=== PATIENT | female | born 1940 | race Caucasian/White ===

== ENCOUNTER 2017-09-22 14:42 | Observation (INO) ==
--- NOTE | 2017-09-22 14:54 | Emergency Department Note ---
Disposition Clinical Impression: Diarrhea, UTI (urinary tract infection) Disposition: Home, Self-Care Condition: Fair Instructions: Urinary Tract Infection in Women (ED) Reasons to Return/Additional Instructions: 1. Please take medication as prescribed. 2. Please follow-up with PCP within the next 24 hours for a re-check. 3. Please return to the ED if patient begins to experience worsening diarrhea, experiencing signs of dehydration including dry mouth, fast heart rate, weaaknes , or fevers. Referrals: Lillian Bruce LEARNING COORDINATOR [Primary Care Provider] - Forms: ED Satisfaction Letter, Work/School Release General Adult HPI - General Chief complaint: ED Abdominal Pain Stated complaint: diarrhea, epigastric pain Time Seen by Provider: 09/22/17 14:48 Source: patient Limitations: no limitations - History of Present Illness Pain Scale: 10 - Related Data Home Medications Medication Instructions Recorded Confirmed Albuterol Sulfate [Proair Hfa] 2 puff IH Q4HR PRN 09/22/17 09/22/17 Donepezil HCl [Aricept] 5 mg PO DAILY 09/22/17 09/22/17 Loratadine [Claritin] 10 mg PO DAILY 09/22/17 09/22/17 Memantine [Namenda] 5 mg PO BID 09/22/17 09/22/17 Montelukast [Singulair] 10 mg PO DAILY 09/22/17 09/22/17 Multivitamin [One Daily Essential] 1 tab PO DAILY 09/22/17 09/22/17 Naproxen Sodium [Aleve] 220 mg PO HS 09/22/17 09/22/17 Omeprazole [PriLOSEC] 20 mg PO DAILY 09/22/17 09/22/17 Tiotropium [Spiriva] 18 mcg IH DAILY 09/22/17 09/22/17 Allergies Allergy/AdvReac Type Severity Reaction Status Date / Time No Known Allergies Allergy Verified 09/22/17 18:39 Past Medical History - Past Medical History Medical history: Reports: dementia, GERD Surgical history: Reports: non-contributory, hysterectomy Psychiatric history: Reports: no psych history COMPLIANCE NURSE history: Reports: bilateral tubal ligation - Social History Smoking Status: Former smoker Smokeless Tobacco Status: No Alcohol use: Reports: none Drug use: Reports: none Physical Exam - General Limitations: no limitations General appearance: alert, in no apparent distress Course Vital Signs Temperature 98.1 F 07/05/18 14:44 Pulse Rate 74 09/22/17 14:44 Respiratory Rate 18 09/22/17 14:44 Blood Pressure 155/73 09/22/17 14:44 O2 Sat by Pulse Oximetry 94 09/22/17 14:44 Temperature 98.1 F 09/22/17 14:44 Pulse Rate 65 09/22/17 15:39 Respiratory Rate 16 09/22/17 15:39 Blood Pressure 123/57 09/22/17 15:39 O2 Sat by Pulse Oximetry 94 09/22/17 14:44 Oxygen Delivery Oxygen Delivery Room Air Medical Decision Making - Lab Data Result diagrams: 09/22/17 17:07 09/22/17 15:40 Lab Results 09/22/17 09/22/17 09/22/17 Range/Units 15:40 16:39 16:48 WBC (4.3-11.1) K/mcL RBC (3.82-4.97) M/mcL Hgb (11.5-15.4) g/dL Hct (35.3-44.9) % MCV (83.0-100.0) fL MCH (28.0-33.3) pg MCHC (31.6-35.5) g/dL RDW (11.5-14.5) % Plt Count (140-400) K/mcL MPV (9.4-12.4) fL Immature Gran % (0-4) % Seg Neutrophils % % Lymphocytes % % Monocytes % % Eosinophils % % Basophils % % Neutrophils # (1.6-8.9) K/mcL Lymphocytes # (0.6-4.6) K/mcL Monocytes # (0.0-1.3) K/mcL Eosinophils # (0.0-0.6) K/mcL Basophils # (0.0-0.2) K/mcL Sodium 138 (136-145) mEq/L Potassium 3.7 (3.5-5.1) mEq/L Chloride 106 (98-107) mEq/L Carbon Dioxide 23 (23-29) mEq/L BUN 15 (8-23) mg/dL Creatinine 0.83 (0.60-1.20) mg/dL Est GFR ( Amer) > 60 (> 60) Est GFR (Non-Af Amer) > 60 (> 60) BUN/Creatinine Ratio 18 (6-26) Glucose 85 (70-105) mg/dL Calculated Osmolality 286 (280-300) Calcium 9.3 (8.6-10.3) mg/dL Total Bilirubin 0.6 (0.3-1.0) mg/dL AST 14 (13-39) Units/L ALT 9 (7-52) Units/L Alkaline Phosphatase 41 (34-104) Units/L Serum Total Protein 5.8 L (6.4-8.9) g/dL Albumin 3.9 (3.5-5.7) g/dL Globulin 1.9 L (2.4-3.5) g/dL Albumin/Globulin Ratio 2.1 (1.1-2.2) Urine Color Yellow (Yellow) Urine Clarity Clear (Clear) Urine pH 6.0 (5.0-8.0) pH Units Ur Specific [place] 1.012 (1.010-1.025) Urine Protein Negative (Neg-Trace) mg/dL Urine Glucose (UA) Normal (Normal) mg/dL Urine Ketones Negative (Negative) mg/dL Urine Blood Negative (Negative) Urine Nitrite Positive A (Negative) Urine Bilirubin Negative (Negative) Urine Urobilinogen Normal (Normal) mg/dL Ur Leukocyte Esterase Small H (Negative) Urine Microscopic RBC 0-3 (0-3) per hpf Urine Microscopic WBC 3-5 H (0-3) per hpf Ur Squamous Epith Cells None Seen (None-Few) per lpf Urine Bacteria Many H (None-Few) per hpf Hyaline Casts None Seen (None-Few) per lpf Ur Culture Indicated? YES A (NO) Specimen Rejected Clotted 09/22/17 Range/Units 17:07 WBC 7.7 (4.3-11.1) K/mcL RBC 3.75 L (3.82-4.97) M/mcL Hgb 12.2 (11.5-15.4) g/dL Hct 34.8 L (35.3-44.9) % MCV 92.8 (83.0-100.0) fL MCH 32.5 (28.0-33.3) pg MCHC 35.1 (31.6-35.5) g/dL RDW 12.5 (11.5-14.5) % Plt Count 179 (140-400) K/mcL MPV 9.1 L (9.4-12.4) fL Immature Gran % 0.5 (0-4) % Seg Neutrophils % 80.0 % Lymphocytes % 12.7 % Monocytes % 4.2 % Eosinophils % 2.5 % Basophils % 0.1 % Neutrophils # 6.2 (1.6-8.9) K/mcL Lymphocytes # 1.0 (0.6-4.6) K/mcL Monocytes # 0.3 (0.0-1.3) K/mcL Eosinophils # 0.2 (0.0-0.6) K/mcL Basophils # 0.0 (0.0-0.2) K/mcL Sodium (136-145) mEq/L Potassium (3.5-5.1) mEq/L Chloride (98-107) mEq/L Carbon Dioxide (23-29) mEq/L BUN (8-23) mg/dL Creatinine (0.60-1.20) mg/dL Est GFR ( Amer) (> 60) Est GFR (Non-Af Amer) (> 60) BUN/Creatinine Ratio (6-26) Glucose (70-105) mg/dL Calculated Osmolality (280-300) Calcium (8.6-10.3) mg/dL Total Bilirubin (0.3-1.0) mg/dL AST (13-39) Units/L ALT (7-52) Units/L Alkaline Phosphatase (34-104) Units/L Serum Total Protein (6.4-8.9) g/dL Albumin (3.5-5.7) g/dL Globulin (2.4-3.5) g/dL Albumin/Globulin Ratio (1.1-2.2) Urine Color (Yellow) Urine Clarity (Clear) Urine pH (5.0-8.0) pH Units Ur Specific [place] (1.010-1.025) Urine Protein (Neg-Trace) mg/dL Urine Glucose (UA) (Normal) mg/dL Urine Ketones (Negative) mg/dL Urine Blood (Negative) Urine Nitrite (Negative) Urine Bilirubin (Negative) Urine Urobilinogen (Normal) mg/dL Ur Leukocyte Esterase (Negative) Urine Microscopic RBC (0-3) per hpf Urine Microscopic WBC (0-3) per hpf Ur Squamous Epith Cells (None-Few) per lpf Urine Bacteria (None-Few) per hpf Hyaline Casts (None-Few) per lpf Ur Culture Indicated? (NO) Specimen Rejected Attestation Statement - Attestation Attestation: I examined this patient and my medical decision-making was reviewed with the Resident Physician. I agree with the documented findings, disposition and treatment plan as described except to the extent set forth below. [id number] time provided Patient complains of upper abdominal pain and diarrhea. She appears in no acute distress. Triage note and vitals reviewed by me
[2017-09-22] MEDS ORDERED: Ondansetron 4 MG/2 ML VIAL IVP ONE (14:55)
[2017-09-22] MEDS ORDERED: 0.9 % Sodium Chloride 1,000 ML IVC ONE (15:04)
--- NOTE | 2017-09-22 15:07 | Emergency Department Note ---
Disposition Clinical Impression: Diarrhea Qualifiers: Diarrhea type: unspecified type Qualified Code(s): R19.7 - Diarrhea, unspecified UTI (urinary tract infection) Qualifiers: Urinary tract infection type: acute cystitis Hematuria presence: without hematuria Qualified Code(s): N30.00 - Acute cystitis without hematuria Disposition: Home, Self-Care Condition: Fair Instructions: Urinary Tract Infection in Women (ED) Reasons to Return/Additional Instructions: 1. Please take medication as prescribed. 2. Please follow-up with PCP within the next 24 hours for a re-check. 3. Please return to the ED if patient begins to experience worsening diarrhea, experiencing signs of dehydration including dry mouth, fast heart rate, weaaknes , or fevers. Prescriptions: cephALEXin [Keflex] 500 mg PO TID #30 capsule Referrals: Lillian Bruce, SENIOR INFORMATICA ETL DEVELOPER [Primary Care Provider] - Forms: ED Satisfaction Letter, Work/School Release Time of Disposition: 17:42 Abdominal Pain HPI - General Chief Complaint: ED Abdominal Pain Stated Complaint: diarrhea, epigastric pain Time Seen by Provider: 09/22/17 14:48 Source: patient Mode of arrival: ambulatory Limitations: no limitations Nursing Notes Reviewed: Yes Vital Signs Reviewed: Yes - History of Present Illness HPI Narrative: 77 year old female arrives to the ED complaining of diarrhea x12 hours. She alma up at 0400 this AM with watery diarrhea. No recent antibiotics, illness, hospitalizations, changes in food, sick exposure. The patient admits to epigastric pain as well. Denies vomiting but admits to nausea and vomiting. Hx of HTN. No other complaints including melena or hematochezia. Pain Scale: 10 - Related Data Home Medications Medication Instructions Recorded Confirmed Albuterol Sulfate [Proair Hfa] 2 puff IH Q4H PRN 02/02/16 02/04/17 Cyanocobalamin (Vitamin B-12) 1,000 mcg SL DAILY 02/02/16 02/04/17 [Vitamin B-12] Oxygen 3 l NS HS 02/02/16 02/04/17 Pyridoxine HCl [Vitamin B-6] 250 mg PO DAILY 02/02/16 02/04/17 Tiotropium [Spiriva] 1 puff IH DAILY 02/02/16 02/04/17 Donepezil HCl [Aricept] 5 mg PO 02/17/17 Memantine [Namenda] 5 mg PO 02/17/17 Omeprazole [PriLOSEC] 20 mg PO DAILY 02/17/17 02/17/17 Fioricet 06/15/17 Singulair 06/15/17 Spiriva 06/15/17 Montelukast 07/10/17 Pyridium 08/15/17 Previous Rx's Medication Instructions Recorded Nitrofurantoin (BID) [Macrobid] 100 mg PO BID 7 Days #14 capsule 08/15/17 cephALEXin [Keflex] 500 mg PO TID #30 capsule 09/22/17 Allergies Allergy/AdvReac Type Severity Reaction Status Date / Time No Known Allergies Allergy Verified 08/15/17 11:59 All systems ED: reviewed and negative except as stated. Constitutional: Denies: fever, chills, weakness ENT ED: Denies: congestion Cardiovascular: Denies: chest pain Respiratory: Denies: dyspnea Gastrointestinal: Reports: abdominal pain, diarrhea. 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 Psychiatric history: Reports: no psych history - Social History Smoking status: Former smoker Alcohol use: Reports: none Drug use: Reports: none Physical Exam - General Limitations: no limitations General appearance: alert, in no apparent distress - Head Head exam: atraumatic, normocephalic, normal inspection - Eye Eye exam: Present: normal appearance, PERRL, EOMI - ENT ENT exam: normal exam, normal oropharynx, mucous membranes moist - Neck Neck exam: Present: normal inspection, full ROM, trachea midline - Chest Chest inspection: Present: normal inspection, symmetric chest wall rise - Respiratory Respiratory exam: Present: normal lung sounds bilaterally - Cardiovascular Cardiovascular exam: Present: regular rate, normal rhythm, normal heart sounds - Abdominal Exam Abdominal exam: Present: soft, tenderness (Epigastric), scar. Absent: distention, guarding, rebound, rigidity, Rojas's sign, Rovsing's sign, tenderness at McBurney's Point, pulsatile mass, hernia - Extremities Exam Extremities exam: Present: normal inspection, full ROM. Absent: tenderness, pedal edema - Neurological Exam Neurological exam: Present: alert, oriented X3 - Skin Skin exam: Present: warm, dry, intact, normal color Course Vital Signs Temperature 98.1 F 09/22/17 14:44 Pulse Rate 74 09/22/17 14:44 Respiratory Rate 18 09/22/17 14:44 Blood Pressure 155/73 09/22/17 14:44 O2 Sat by Pulse Oximetry 94 09/22/17 14:44 Temperature 98.1 F 09/22/17 14:44 Pulse Rate 65 09/22/17 15:39 Respiratory Rate 16 09/22/17 15:39 Blood Pressure 123/57 09/22/17 15:39 O2 Sat by Pulse Oximetry 94 09/22/17 14:44 Oxygen Delivery Oxygen Delivery Room Air Abdominal Pain - MDM Narrative Medical decision making narrative: Patient's workup in the emergency department demonstrates findings consistent with a urinary tract infection. The patient has a nitrite positive on lab work. Patient has an extensive history of Escherichia coli on urinalysis. The patient will was given Rocephin here in the emergency Department we will with Keflex home. The patient was noted to have several sporran susceptible Escherichia coli. The patient is resting comfortably at this time and given a liter fluid. Labs are unremarkable otherwise. CT scan demonstrates no acute process. The patient will be discharged home and follow-up with PCP within the next 24 hours for recheck. Patient and patient's family feel comfortable with being discharged. No further questions or concerns noted at this time. - Medical Records Medical records reviewed: Yes I reviewed the patient's medical records. - Lab Data Lab results reviewed: Yes I reviewed the patient's lab results. Result diagrams: 09/22/17 17:07 09/22/17 15:40 Lab Results 09/22/17 09/22/17 09/22/17 Range/Units 15:40 16:39 16:48 WBC (4.3-11.1) K/mcL RBC (3.82-4.97) M/mcL Hgb (11.5-15.4) g/dL Hct (35.3-44.9) % MCV (83.0-100.0) fL MCH (28.0-33.3) pg MCHC (31.6-35.5) g/dL RDW (11.5-14.5) % Plt Count (140-400) K/mcL MPV (9.4-12.4) fL Immature Gran % (0-4) % Seg Neutrophils % % Lymphocytes % % Monocytes % % Eosinophils % % Basophils % % Neutrophils # (1.6-8.9) K/mcL Lymphocytes # (0.6-4.6) K/mcL Monocytes # (0.0-1.3) K/mcL Eosinophils # (0.0-0.6) K/mcL Basophils # (0.0-0.2) K/mcL Sodium 138 (136-145) mEq/L Potassium 3.7 (3.5-5.1) mEq/L Chloride 106 (98-107) mEq/L Carbon Dioxide 23 (23-29) mEq/L BUN 15 (8-23) mg/dL Creatinine 0.83 (0.60-1.20) mg/dL Est GFR ( Amer) > 60 (> 60) Est GFR (Non-Af Amer) > 60 (> 60) BUN/Creatinine Ratio 18 (6-26) Glucose 85 (70-105) mg/dL Calculated Osmolality 286 (280-300) Calcium 9.3 (8.6-10.3) mg/dL Total Bilirubin 0.6 (0.3-1.0) mg/dL AST 14 (13-39) Units/L ALT 9 (7-52) Units/L Alkaline Phosphatase 41 (34-104) Units/L Serum Total Protein 5.8 L (6.4-8.9) g/dL Albumin 3.9 (3.5-5.7) g/dL Globulin 1.9 L (2.4-3.5) g/dL Albumin/Globulin Ratio 2.1 (1.1-2.2) Urine Color Yellow (Yellow) Urine Clarity Clear (Clear) Urine pH 6.0 (5.0-8.0) pH Units Ur Specific [place] 1.012 (1.010-1.025) Urine Protein Negative (Neg-Trace) mg/dL Urine Glucose (UA) Normal (Normal) mg/dL Urine Ketones Negative (Negative) mg/dL Urine Blood Negative (Negative) Urine Nitrite Positive A (Negative) Urine Bilirubin Negative (Negative) Urine Urobilinogen Normal (Normal) mg/dL Ur Leukocyte Esterase Small H (Negative) Urine Microscopic RBC 0-3 (0-3) per hpf Urine Microscopic WBC 3-5 H (0-3) per hpf Ur Squamous Epith Cells None Seen (None-Few) per lpf Urine Bacteria Many H (None-Few) per hpf Hyaline Casts None Seen (None-Few) per lpf Ur Culture Indicated? YES A (NO) Specimen Rejected Clotted 09/22/17 Range/Units 17:07 WBC 7.7 (4.3-11.1) K/mcL RBC 3.75 L (3.82-4.97) M/mcL Hgb 12.2 (11.5-15.4) g/dL Hct 34.8 L (35.3-44.9) % MCV 92.8 (83.0-100.0) fL MCH 32.5 (28.0-33.3) pg MCHC 35.1 (31.6-35.5) g/dL RDW 12.5 (11.5-14.5) % Plt Count 179 (140-400) K/mcL MPV 9.1 L (9.4-12.4) fL Immature Gran % 0.5 (0-4) % Seg Neutrophils % 80.0 % Lymphocytes % 12.7 % Monocytes % 4.2 % Eosinophils % 2.5 % Basophils % 0.1 % Neutrophils # 6.2 (1.6-8.9) K/mcL Lymphocytes # 1.0 (0.6-4.6) K/mcL Monocytes # 0.3 (0.0-1.3) K/mcL Eosinophils # 0.2 (0.0-0.6) K/mcL Basophils # 0.0 (0.0-0.2) K/mcL Sodium (136-145) mEq/L Potassium (3.5-5.1) mEq/L Chloride (98-107) mEq/L Carbon Dioxide (23-29) mEq/L BUN (8-23) mg/dL Creatinine (0.60-1.20) mg/dL Est GFR ( Amer) (> 60) Est GFR (Non-Af Amer) (> 60) BUN/Creatinine Ratio (6-26) Glucose (70-105) mg/dL Calculated Osmolality (280-300) Calcium (8.6-10.3) mg/dL Total Bilirubin (0.3-1.0) mg/dL AST (13-39) Units/L ALT (7-52) Units/L Alkaline Phosphatase (34-104) Units/L Serum Total Protein (6.4-8.9) g/dL Albumin (3.5-5.7) g/dL Globulin (2.4-3.5) g/dL Albumin/Globulin Ratio (1.1-2.2) Urine Color (Yellow) Urine Clarity (Clear) Urine pH (5.0-8.0) pH Units Ur Specific [place] (1.010-1.025) Urine Protein (Neg-Trace) mg/dL Urine Glucose (UA) (Normal) mg/dL Urine Ketones (Negative) mg/dL Urine Blood (Negative) Urine Nitrite (Negative) Urine Bilirubin (Negative) Urine Urobilinogen (Normal) mg/dL Ur Leukocyte Esterase (Negative) Urine Microscopic RBC (0-3) per hpf Urine Microscopic WBC (0-3) per hpf Ur Squamous Epith Cells (None-Few) per lpf Urine Bacteria (None-Few) per hpf Hyaline Casts (None-Few) per lpf Ur Culture Indicated? (NO) Specimen Rejected - Radiology Data Radiology results reviewed: Yes I reviewed the patient's radiology results. Abdomen/Pelvis CT 09/22/17 14:55 IMPRESSION: 1. No acute findings within the abdomen or pelvis. Diverticulosis with no CT evidence of diverticulitis. No secondary signs of appendicitis. No evidence of obstructive uropathy. 2. Cholelithiasis with no acute features. Stable dilatation of the extrahepatic biliary tree with the common bile duct at 10 mm. D/ / 09/22/2017 15:35:12 Onesimo Wiseman MD / santhosh Interpreting Provider: Onesimo Wiseman MD
[2017-09-22 16:48] LABS: Alanine Aminotransferase 9 Units/L (7-52); Albumin 3.9 g/dL (3.5-5.7); Albumin/Globulin Ratio 2.1 (1.1-2.2); Alkaline Phosphatase 41 Units/L (34-104); Aspartate Amino Transferase 14 Units/L (13-39); BUN/Creatinine Ratio 18 (6-26); Bilirubin,Total 0.6 mg/dL (0.3-1.0); Blood Urea Nitrogen 15 mg/dL (8-23); Calcium 9.3 mg/dL (8.6-10.3); Carbon Dioxide 23 mEq/L (23-29); Chloride 106 mEq/L (98-107); Globulin 1.9 g/dL (2.4-3.5); Glucose 85 mg/dL (70-105); Osmolality,Calculated 286 (280-300); Potassium 3.7 mEq/L (3.5-5.1); Sodium 138 mEq/L (136-145); Total Protein 5.8 g/dL (6.4-8.9); eGFR For African Americans > 60 (> 60); eGFR For Non-African Americans > 60 (> 60)
[2017-09-22 17:05] LABS: Bilirubin,Urine Negative (Negative); Blood,Urine Negative (Negative); Clarity,Urine Clear (Clear); Color,Urine Yellow (Yellow); Glucose,Urine (UA) Normal (Normal); Ketones,Urine Negative (Negative); Protein,Urine Negative (Neg-Trace); Specific Gravity,Urine 1.012 (1.010-1.025); Urobilinogen,Urine Normal (Normal)
[2017-09-22 17:06] LABS: Leukocyte Esterase,Urine Small (Negative); Nitrite,Urine Positive (Negative)
[2017-09-22 17:08] LABS: Bacteria,Urine Many per hpf (None-Few); Hyaline Casts,Urine None Seen per lpf (None-Few); RBC,Urine 0-3 per hpf (0-3); Squamous Epithelial Cell,Urine None Seen per lpf (None-Few)
[2017-09-22 17:21] LABS: Basophils % 0.1 %; Eosinophils # 0.2 K/mcL (0.0-0.6); Eosinophils % 2.5 %; Hematocrit 34.8 % (35.3-44.9); Hemoglobin 12.2 g/dL (11.5-15.4); Immature Granulocytes % 0.5 % (0-4); Lymphocytes % 12.7 %; Mean Corpuscular HGB Conc 35.1 g/dL (31.6-35.5); Mean Corpuscular Hemoglobin 32.5 pg (28.0-33.3); Mean Corpuscular Volume 92.8 fL (83.0-100.0); Mean Platelet Volume 9.1 fL (9.4-12.4); Monocytes # 0.3 K/mcL (0.0-1.3); Monocytes % 4.2 %; Neutrophils # 6.2 K/mcL (1.6-8.9); Platelet Count 179 K/mcL (140-400); Red Blood Count 3.75 M/mcL (3.82-4.97); Red Cell Distribution Width 12.5 % (11.5-14.5)
[2017-09-22] MEDS ORDERED: cefTRIAXone 1,000 MG in Water for inj. (sterile) 20 ML 10 ML IVP ONE (17:25)
--- NOTE | 2017-09-22 21:37 | Internal Med History&Physical ---
Date of Encounter: 09/22/17 Time of Encounter: 21:37 Internal Medicine - H&P: HPI Chief complaint: Diarrahea History of present illness: Ms. Paul is a 77 year old female complaining of diarrhea x12 hours associated with abdominal pain, nausea and vomiting. No recent antibiotics, illness, hospitalizations, changes in food, sick exposure. Denies melena or hematochezia. UA was suggetive of UTI and she was admitted for further evaluation. Past Med Surg Social Fam HX - Past Medical History Medical history: COPD, dementia, GERD, other Additional medical history: OA Psychiatric history: no psych history - Past Surgical History Surgical History: non-contributory, hysterectomy, knee replacement Additional surgical history: cataracts, partial breast removal on left from [place]. - Social History Smoking Status: Former smoker Smokeless Tobacco Status: No Alcohol use: none Drug use: none Internal Medicine - H&P: Meds Albuterol Sulfate [Proair Hfa] 2 puff IH Q4HR PRN 09/22/17 [History] Donepezil HCl [Aricept] 5 mg PO DAILY 09/22/17 [History] Loratadine [Claritin] 10 mg PO DAILY 09/22/17 [History] Memantine [Namenda] 5 mg PO BID 09/22/17 [History] Montelukast [Singulair] 10 mg PO DAILY 09/22/17 [History] Multivitamin [One Daily Essential] 1 tab PO DAILY 09/22/17 [History] Naproxen Sodium [Aleve] 220 mg PO HS 09/22/17 [History] Omeprazole [PriLOSEC] 20 mg PO DAILY 09/22/17 [History] Tiotropium [Spiriva] 18 mcg IH DAILY 09/22/17 [History] Lactobacillus [Culturelle] 1 each PO DAILY #30 cap.sprink 09/23/17 [Rx] Sulfamethoxazole/Trimeth DS [Bactrim DS] 1 each PO BID #6 tablet 09/23/17 [Rx] 3 Allergy/AdvReac Type Severity Reaction Status Date / Time No Known Allergies Allergy Verified 09/22/17 18:39 All Systems PM: A 10-system review of systems was performed and is negative for pertinent findings except as documented above in the HPI. - Constitutional Vitals: Temp Pulse Resp BP Pulse Ox 97.8 F 64 14 127/75 95 09/22/17 20:24 09/22/17 20:24 09/22/17 20:24 09/22/17 20:24 09/22/17 20:24 Internal Med - H&P Results - Labs CBC & Chem 7: 09/23/17 08:15 09/23/17 08:15 - Assessment and plan (1) Diarrhea Status: Acute Assessment and plan: SSESSMENT: - Diarrhea *UTI PLAN: - IVF - Stool WBC, O/P, C/S, Stool C.diff - Urine C+S - CBCD, BMP in AM - DVT prophylaxis Qualifiers: Diarrhea type: unspecified type Qualified Code(s): R19.7 - Diarrhea, unspecified (2) UTI (urinary tract infection) Status: Acute Qualifiers: Urinary tract infection type: acute cystitis Hematuria presence: without hematuria Qualified Code(s): N30.00 - Acute cystitis without hematuria - Time Spent With Patient Total time spent is greater than 50% in coordination of care (as documented) at patient's floor/unit and/or counseling patient:
[2017-09-23 08:45] LABS: Basophils % 0.4 %; Eosinophils # 0.3 K/mcL (0.0-0.6); Eosinophils % 5.4 %; Hematocrit 34.5 % (35.3-44.9); Hemoglobin 12.1 g/dL (11.5-15.4); Immature Granulocytes % 0.2 % (0-4); Lymphocytes # 0.8 K/mcL (0.6-4.6); Lymphocytes % 17.2 %; Mean Corpuscular HGB Conc 35.1 g/dL (31.6-35.5); Mean Corpuscular Hemoglobin 32.7 pg (28.0-33.3); Mean Corpuscular Volume 93.2 fL (83.0-100.0); Mean Platelet Volume 9.5 fL (9.4-12.4); Monocytes # 0.3 K/mcL (0.0-1.3); Monocytes % 6.9 %; Neutrophils # 3.3 K/mcL (1.6-8.9); Platelet Count 194 K/mcL (140-400); Red Cell Distribution Width 12.6 % (11.5-14.5); Segmented Neutrophils % 69.9 %
[2017-09-23 08:59] LABS: BUN/Creatinine Ratio 20 (6-26); Blood Urea Nitrogen 17 mg/dL (8-23); Carbon Dioxide 27 mEq/L (23-29); Chloride 110 mEq/L (98-107); Glucose 100 mg/dL (70-105); Osmolality,Calculated 294 (280-300); Potassium 4.1 mEq/L (3.5-5.1); Sodium 141 mEq/L (136-145); eGFR For African Americans > 60 (> 60); eGFR For Non-African Americans > 60 (> 60)
[2017-09-23] MEDS ORDERED: Loratadine 10 MG TABLET PO SCH (09:00)
[2017-09-23] MEDS ORDERED: Multivit/Ca/Min/Fe/FA 1 TAB TABLET PO SCH (09:00)
[2017-09-23 09:26] LABS: Adenovirus F 40/41 PCR Not detected (Not detect); Astrovirus PCR Not detected (Not detect); C.difficile Toxin A/B by PCR Not detected (Not detect); Campylobacter by PCR Not detected (Not detect); Cryptosporidium by PCR Not detected (Not detect); Cyclospora cayetanensis PCR Not detected (Not detect); E. coli O157 by PCR Not detected (Not detect); Entamoeba histolytica PCR Not detected (Not detect); Enteroaggregative E.coli(EAEC) Not detected (Not detect); Enteropathogenic E.coli(EPEC) Not detected (Not detect); Enterotoxigenic E.coli (ETEC) Not detected (Not detect); Giardia lamblia PCR Not detected (Not detect); Norovirus GI/GII PCR Not detected (Not detect); Plesiomonas shigelloides PCR Not detected (Not detect); Rotavirus A PCR Not detected (Not detect); Salmonella PCR Not detected (Not detect); Sapovirus PCR Not detected (Not detect); Shig/EnteroinvasiveE coli EIEC Not detected (Not detect); Shigalike tox-prod E coli STEC Not detected (Not detect); Vibrio PCR Not detected (Not detect); Vibrio cholerae PCR Not detected (Not detect); Yersinia enterocolitica PCR Not detected (Not detect)
[2017-09-23] MEDS ORDERED: Tiotropium 18 MCG inhalation IH SCH (10:00)
[2017-09-23 11:55] VITALS: BP 133/75
--- NOTE | 2017-09-23 11:57 | Discharge Summary ---
- NOTES TO OUTPATIENT PROVIDER Notes to Outpatient Provider: Patient was treated with Rocephin IV and then given Bactrin which was sensitive to previous cultures which grew ecoli. consult to Gul as oupatient Date of Encounter: 09/23/17 Time of Encounter: 11:55 - Discharge Diagnosis (1) Diarrhea Priority: Primary Status: Acute Qualifiers: Diarrhea type: unspecified type Qualified Code(s): R19.7 - Diarrhea, unspecified (2) UTI (urinary tract infection) Priority: Secondary Status: Acute Qualifiers: Urinary tract infection type: acute cystitis Hematuria presence: without hematuria Qualified Code(s): N30.00 - Acute cystitis without hematuria Hospital course: Ms. Paul is a 77 year old female past medical history COPD dementia GERD patient presents him her sperm after experiencing diarrhea for approximately 12 hours. She had several bouts of watery diarrhea as well as some epigastric pain denying vomiting melena or hematochezia. She has had no recent exposure to antibiotics or illness hospitalizations. Sofi does express that this does occur off and on however not as this intense. She was noted to have a UTI as well-rest of her lab work was unremarkable. CT of abdomen with no acute findings diverticulosis was noted but no diverticulitis She was admitted and given IV hydration overnight. She only had 1 loose stool overnight GI panel was negative for any C or infectious process. She is given IV Rocephin for her UTI. Patient has been ambulating up and down the hallway with her daughter without difficulty. She has been eating and drinking tolerating oral intake. Denies any urinary symptoms at this time. Denies any abdominal pain She is requesting to go home. Advised patient and daughter to follow-up with primary care provider since this provider knows her best and can adjust medications accordingly. I will also have patient follow-up with GI as outpatient her last colonoscopy was 2 years ago-I did give patient a prescription for Bactrim since this was sensitive on the previous urine culture which grew Escherichia coli I also gave her prescription for culturelle. I answered questions asked by both patient and family member patient is hemodynamically stable and is ready for discharge at this time. - Time Spent with Patient Total time spent providing and/or coordinating discharge services: - Discharge Medications Prescriptions: Lactobacillus [Culturelle] 1 each PO DAILY #30 cap.sprink Sulfamethoxazole/Trimeth DS [Bactrim DS] 1 each PO BID #6 tablet Home Medications: Albuterol Sulfate [Proair Hfa] 2 puff IH Q4HR PRN 09/22/17 [History] Donepezil HCl [Aricept] 5 mg PO DAILY 09/22/17 [History] Loratadine [Claritin] 10 mg PO DAILY 09/22/17 [History] Memantine [Namenda] 5 mg PO BID 09/22/17 [History] Montelukast [Singulair] 10 mg PO DAILY 09/22/17 [History] Multivitamin [One Daily Essential] 1 tab PO DAILY 09/22/17 [History] Naproxen Sodium [Aleve] 220 mg PO HS 09/22/17 [History] Omeprazole [PriLOSEC] 20 mg PO DAILY 09/22/17 [History] Tiotropium [Spiriva] 18 mcg IH DAILY 09/22/17 [History] Lactobacillus [Culturelle] 1 each PO DAILY #30 cap.sprink 09/23/17 [Rx] Sulfamethoxazole/Trimeth DS [Bactrim DS] 1 each PO BID #6 tablet 09/23/17 [Rx] Allergies/Adverse Reactions: 3 Allergy/AdvReac Type Severity Reaction Status Date / Time No Known Allergies Allergy Verified 09/22/17 18:39 Date of admission: 09/22/17 19:59 Primary care physician: Lillian Bruce CNP Discharging clinician: Nubia Dc Anticipated date of discharge: 09/23/17 - Constitutional Vitals: Temp Pulse Resp BP Pulse Ox 98.1 F 71 16 151/86 96 09/23/17 07:11 09/23/17 07:11 09/23/17 07:52 09/23/17 07:11 09/23/17 07:52 General appearance: Present: A&O X 3 - Head Head exam: Present: atraumatic, normocephalic - Eye Eye exam: Present: PERRL, conjuntiva pink, sclera anicteric Pupils: Present: PERRL - Neck Neck exam general surgery: Present: supple, trachea midline. Absent: lymphadenopathy - Respiratory Respiratory exam: Present: CTAB. Absent: accessory muscle use, rales, rhonchi, wheezes - Cardiovascular Cardiovascular exam: Present: RRR, +S1, +S2. Absent: diastolic murmur, gallop, rubs, systolic murmur - GI/Abdominal GI/Abdominal exam: Present: normal bowel sounds, soft, no peritoneal signs. Absent: distended, tenderness - Extremities Exam Extremities exam: Present: warm, radial pulses palpable and symmetrical. Absent : calf tenderness, cyanotic, pedal edema - Neurological Exam Neurological exam: Present: CN II-XII intact, oriented X3, no focal deficits. Absent: pronater drift, facial droop, speech deficit - Skin Skin exam: Present: dry, intact - Patient Status Disposition: Home, Self-Care Condition: Fair Functional capacity at discharge: independent ambulation Overall status at discharge: patient is back to baseline - Discharge Instructions Instructions: Urinary Tract Infection in Women (DC) Follow Up With: Lillian Bruce CNP [Primary Care Provider] - Jon Hernandez MD [Partnered Physician] - (Hospital follow up appointment has been requested. Our offices will call you with an appointment time and date. ) - Diet and Activity Activity: resume usual activities as tolerated Diet: advance to your usual diet
[2017-09-23] MEDS ORDERED: cefTRIAXone 1,000 MG in Water for inj. (sterile) 20 ML 10 ML IVP SCH (13:00)
== END 2017-09-23 13:02 | disposition home or self-care (01) ==
LOC: 3BNU 14:42 → EMEROO 14:42 → 3BNU 20:24
PROVIDERS: ADMIT Internal Medicine; ATTEND Internal Medicine